=== PATIENT | male | born 1960 | race African-American/Black ===

== ENCOUNTER 2017-10-01 16:34 | Emergency (ER) | payer MEDICAID, OTHER ==
[~2017-10-01] VITALS: Ht 182.9 cm; Wt 77.1 kg
[2017-10-01 17:32] LABS: Hemoglobin 9.7 g/dL (13.5-17.5); Monocytes # (auto) 1.2 uL
[2017-10-01 17:34] LABS: Basophils # (auto) 0.2 uL; Basophils % (auto) 1.3 % (0.0-2.0); Eosinophils # (auto) 0.6 uL; Eosinophils % (auto) 4.3 % (0.0-7.0); Lymphocytes # (auto) 3.5 uL; Lymphocytes % (auto) 24.3 % (10.0-50.0); Mean Corpuscular Hemoglobin 23.9 pg (28.0-32.0); Mean Corpuscular Hgb Conc. 30.3 g/dL (32.0-36.0); Mean Corpuscular Volume 78.9 fL (80.0-100.0); Mean Platelet Volume 8.4 fL (6.9-10.8); Monocytes % (auto) 8.6 % (0.0-12.0); Neutrophils # (auto) 8.8 uL; Neutrophils % (auto) 61.5 % (37.0-80.0); Platelet Count (auto) 362 10^3/uL (140-450); Red Cell Distribution Width 16.3 % (11.8-14.3); White Blood Cell 14.3 10^3/uL (4.4-10.8)
[2017-10-01 17:45] LABS: Alkaline Phosphatase 97 U/L (45-117); Anion Gap 9 (5-15); Aspartate Aminotransferase 9 U/L (15-37); BUN/Creatinine Ratio 12.4; Bilirubin, Total 0.2 mg/dL (0.2-1.0); Blood Urea Nitrogen 43 mg/dL (7-18); Calcium 9.6 mg/dL (8.5-10.1); Carbon Dioxide 23 mmol/L (21-32); Chloride 112 mmol/L (98-107); GFR African American 24 mL/min; GFR Non-African American 20 mL/min; Glucose 122 mg/dL (74-106); Magnesium 1.9 mg/dL (1.6-2.6); Sodium 144 mmol/L (136-145); Total Protein 8.6 g/dL (6.4-8.2)
[2017-10-01 18:30] LABS: Hypochromia Moderate; Microcytosis Slight; Platelet Estimate Adequate
[2017-10-01] MEDS ORDERED: LEVOFLOXACIN 250 MG TAB PO ONE (23:00)
[2017-10-02] MEDS ORDERED: FUROSEMIDE 40 MG TAB PO ONE (00:15)
[2017-10-02 02:11] VITALS: BP 176/94
== END 2017-10-02 00:54 | disposition home or self-care (01) ==
LOC: ER 16:34
DX: I11.0 Hypertensive heart disease with heart failure (principal); I50.9 Heart failure, unspecified; J40 Bronchitis, not specified as acute or chronic; L02.212 Cutaneous abscess of back [any part, except buttock and flank]; E11.9 Type 2 diabetes mellitus without complications; F17.210 Nicotine dependence, cigarettes, uncomplicated
CPT/HCPCS: 36415; 71010; 80053; 83735; 84484; 85025; 93005

== ENCOUNTER 2018-01-24 11:28 | Inpatient (IN) | payer MEDICAID ==
[2018-01-24] VITALS (16 sets, daily range): BP systolic 90–139; BP diastolic 58–81
[~2018-01-24] VITALS: Ht 182.9 cm; Wt 103.0 kg
[2018-01-24 12:51] LABS: Basophils # (auto) 0.1 uL; Basophils % (auto) 0.3 % (0.0-2.0); Eosinophils # (auto) 0 uL; Eosinophils % (auto) 0.1 % (0.0-7.0); Hematocrit 13.3 % (41.0-53.0); Lymphocytes # (auto) 2.1 uL; Lymphocytes % (auto) 10.7 % (10.0-50.0); Mean Corpuscular Hemoglobin 24.8 pg (28.0-32.0); Mean Corpuscular Hgb Conc. 30.7 g/dL (32.0-36.0); Mean Corpuscular Volume 80.9 fL (80.0-100.0); Monocytes # (auto) 0.9 uL; Monocytes % (auto) 4.5 % (0.0-12.0); Neutrophils # (auto) 16.2 uL; Neutrophils % (auto) 84.4 % (37.0-80.0); Nucleated Red Blood Cells % 0.1 %; Platelet Count (auto) 429 10^3/uL (140-450); Red Blood Cells 1.64 10^6/uL (4.5-5.90); Red Cell Distribution Width 17.4 % (11.8-14.3); White Blood Cell 19.2 10^3/uL (4.4-10.8)
[2018-01-24 13:01] LABS: INR 0.99 (0.9-1.15); Partial Thromboplastin Time 24.4 sec (22.64-33.71); Prothrombin Time 10.8 sec (9.37-12.3)
[2018-01-24 13:23] LABS: Alanine Aminotransferase 51 U/L (16-61); Albumin 2.9 g/dL (3.4-5.0); Alkaline Phosphatase 83 U/L (45-117); Anion Gap 16 (5-15); Aspartate Aminotransferase 15 U/L (15-37); Bilirubin, Total 0.4 mg/dL (0.2-1.0); Blood Alcohol < 3.0 mg/dL (0-5); Calcium 9.4 mg/dL (8.5-10.1); Carbon Dioxide 26 mmol/L (21-32); Chloride 100 mmol/L (98-107); GFR African American 11 mL/min; GFR Non-African American 9 mL/min; Glucose 188 mg/dL (74-106); Magnesium 2.7 mg/dL (1.6-2.6); Potassium 4.7 mmol/L (3.5-5.1); Sodium 142 mmol/L (136-145)
[2018-01-24 13:36] LABS: Hemoglobin 4.1 g/dL (13.5-17.5)
[2018-01-24] MEDS ORDERED: NITROGLYCERIN 0.4 MG SL TAB SL PRN (14:30)
[2018-01-24] MEDS ORDERED: DEXTROSE (50%) 50ML SYRG IV PRN (14:30)
[2018-01-24] MEDS ORDERED: PROMETHAZINE HCL 25 MG/ML 1ML IV PRN (14:30)
[2018-01-24] MEDS ORDERED: PANTOPRAZOLE 40 MG/10 ML VIAL IV ONE (14:30)
[2018-01-24] MEDS ORDERED: PIPERACILLIN-TAZOB 2.25GM 50 ML IV ONE (14:30)
[2018-01-24] MEDS ORDERED: MORPHINE SULFATE 4 MG/ML SYR/VIAL IV PRN ×3 (14:30)
[2018-01-24] MEDS: SODIUM CHLORIDE 0.9% 1,000 ML IV SCH (14:36)
[2018-01-24] MEDS ORDERED: PIPERACILLIN-TAZOB 0.75 GM in D5W 5% 50 ML IV PRN (14:45)
[2018-01-24 14:54] LABS: BUN/Creatinine Ratio 23.7
[2018-01-24 15:00] LABS: Blood Urea Nitrogen 159 mg/dL (7-18)
[2018-01-24 15:02] LABS: CRP High Sensitivity 3.43 mg/dL (< 0.3)
[2018-01-24] MEDS: LORazepam 2MG/ML-1ML VIAL IV PRN (15:15)
[2018-01-24] MEDS: NOREPINEPHRINE 8 MG/250ML KIT 250 ML IV SCH (16:37)
[2018-01-24] MEDS ORDERED: EPOETIN ALFA 10,000 UNIT/1 ML VIAL IV ONE (17:45)
[2018-01-24] MEDS: ACCU-CHEK COMFORT CURVE STRIP VI SCH (18:05)
[2018-01-24] MEDS: InsuLIN REG 1unit/0.01ml Soln (100units/ml) SC SCH (18:11)
[2018-01-24] MEDS: LINEZOLID 600MG/300ML 300 ML IV SCH (19:05)
[2018-01-24 20:09] LABS: Hemoglobin 7.9 g/dL (13.5-17.5)
[2018-01-24 20:10] LABS: Hematocrit 24.4 % (41.0-53.0)
[2018-01-24 20:14] LABS: Urine WBC None Seen /hpf (0 - 3)
[2018-01-24 20:29] LABS: Urine Bacteria FEW /hpf (None Seen); Urine Blood Negative /uL (Negative); Urine Specific Gravity 1.013 (1.001-1.035)
[2018-01-24 20:29] LABS: Carcinoembryonic Antigen 0.75 ng/mL (<5.0 OR =)
[2018-01-24] MEDS: metroNIDAZOLE 500MG/100ML 100 ML IV SCH (21:00)
[2018-01-24] MEDS: PANTOPRAZOLE 40 MG/10 ML VIAL IV SCH (22:14)
[2018-01-24] MEDS: PIPERACILLIN-TAZOB 2.25GM 50 ML IV SCH (22:14)
[2018-01-25] VITALS (79 sets, daily range): BP systolic 95–151; BP diastolic 45–97
[2018-01-25] MEDS: ACCU-CHEK COMFORT CURVE STRIP VI SCH ×4 (00:26→17:45)
[2018-01-25] MEDS: SODIUM CHLORIDE 0.9% 1,000 ML IV SCH ×3 (00:27→20:17)
[2018-01-25] MEDS: metroNIDAZOLE 500MG/100ML 100 ML IV SCH ×4 (00:27→17:46)
[2018-01-25] MEDS: LINEZOLID 600MG/300ML 300 ML IV SCH ×2 (01:30→14:51)
[2018-01-25 04:06] LABS: Hematocrit 21.2 % (41.0-53.0)
[2018-01-25 04:26] LABS: Cholesterol 109 mg/dL (< 200); HDL Cholesterol 25 mg/dL (40-59); LDL Cholesterol 63 mg/dL (< 100); Triglycerides 207 mg/dL (< 150)
[2018-01-25 04:33] LABS: Albumin 2.7 g/dL (3.4-5.0); BUN/Creatinine Ratio 22.4; Bilirubin, Total 0.8 mg/dL (0.2-1.0); Calcium 8.5 mg/dL (8.5-10.1); Total Protein 7.2 g/dL (6.4-8.2)
[2018-01-25] MEDS: InsuLIN REG 1unit/0.01ml Soln (100units/ml) SC SCH ×4 (06:10→17:45)
[2018-01-25 08:02] LABS: Hematocrit 21.4 % (41.0-53.0)
[2018-01-25 08:08] LABS: Hemoglobin 6.9 g/dL (13.5-17.5)
[2018-01-25] MEDS ORDERED: EPOETIN ALFA 10,000 UNIT/1 ML VIAL IV ONE (09:00)
[2018-01-25] MEDS ORDERED: SODIUM CHL 0.9% 1000 ML BAG XX ONE (09:00)
[2018-01-25] MEDS ORDERED: PANTOPRAZOLE 40 MG/10 ML VIAL IV SCH (10:00)
[2018-01-25] MEDS: PANTOPRAZOLE 40 MG/10 ML VIAL IV SCH ×2 (12:26→22:00)
[2018-01-25] MEDS: PIPERACILLIN-TAZOB 2.25GM 50 ML IV SCH ×2 (12:26→22:00)
[2018-01-25] MEDS ORDERED: NIFE60TA59 PO (13:09)
[2018-01-25] MEDS ORDERED: IBUP800T24 PO (13:09)
[2018-01-25] MEDS ORDERED: SPIR25TA89 PO (13:09)
[2018-01-25] MEDS ORDERED: ASPI81CH43 PO (13:09)
[2018-01-25] MEDS ORDERED: HYDR25TA4 PO (13:09)
[2018-01-25] MEDS ORDERED: HYDR50TA15 PO (13:09)
[2018-01-25] MEDS ORDERED: CLON0.2D6 PO (13:09)
[2018-01-25] MEDS ORDERED: CARV25TA55 PO (13:09)
[2018-01-25] MEDS ORDERED: GABA300C10 PO (13:09)
[2018-01-25] MEDS ORDERED: METF-370 PO (13:09)
[2018-01-25] MEDS ORDERED: CLOP75TA41 PO (13:09)
[2018-01-25] MEDS ORDERED: LABE100T PO (13:09)
[2018-01-25] MEDS ORDERED: POTA20TA53 PO (13:17)
[2018-01-25] MEDS ORDERED: COLLPOW10 TOP (13:17)
[2018-01-25 13:30] LABS: Hematocrit 30.4 % (41.0-53.0)
[2018-01-25] MEDS: NOREPINEPHRINE 8 MG/250ML KIT 250 ML IV SCH (14:53)
[2018-01-25] MEDS ORDERED: GOLYTELY 4L KIT PO ONE (18:00)
[2018-01-25 18:57] LABS: Hematocrit 31.5 % (41.0-53.0); Hemoglobin 10.4 g/dL (13.5-17.5)
[2018-01-25] MEDS: FLUCONAZOLE 200MG/100ML 100 ML IV SCH (19:11)
[2018-01-26] VITALS (43 sets, daily range): BP systolic 120–161; BP diastolic 78–102
[2018-01-26] MEDS: metroNIDAZOLE 500MG/100ML 100 ML IV SCH ×5 (00:15→23:47)
[2018-01-26] MEDS: InsuLIN REG 1unit/0.01ml Soln (100units/ml) SC SCH ×4 (00:20→18:00)
[2018-01-26] MEDS: ACCU-CHEK COMFORT CURVE STRIP VI SCH ×4 (00:20→17:47)
[2018-01-26] MEDS: LINEZOLID 600MG/300ML 300 ML IV SCH ×2 (01:30→15:37)
[2018-01-26] MEDS: LORazepam 2MG/ML-1ML VIAL IV PRN (02:05)
[2018-01-26 02:11] LABS: Hematocrit 33.9 % (41.0-53.0); Hemoglobin 10.5 g/dL (13.5-17.5)
[2018-01-26 03:45] LABS: Basophils # (auto) 0.1 uL; Basophils % (auto) 0.9 % (0.0-2.0); Eosinophils # (auto) 0.1 uL; Eosinophils % (auto) 0.8 % (0.0-7.0); Hemoglobin 9.9 g/dL (13.5-17.5); Lymphocytes # (auto) 2.4 uL; Lymphocytes % (auto) 14.8 % (10.0-50.0); Mean Corpuscular Hemoglobin 28.1 pg (28.0-32.0); Mean Corpuscular Hgb Conc. 33.1 g/dL (32.0-36.0); Monocytes # (auto) 1.6 uL; Monocytes % (auto) 10.1 % (0.0-12.0); Neutrophils # (auto) 11.7 uL; Neutrophils % (auto) 73.4 % (37.0-80.0); Nucleated Red Blood Cells % 0.7 %; Platelet Count (auto) 180 10^3/uL (140-450); Red Blood Cells 3.53 10^6/uL (4.5-5.90); Red Cell Distribution Width 15.3 % (11.8-14.3)
[2018-01-26 04:00] LABS: BUN/Creatinine Ratio 14.9; Calcium 8.3 mg/dL (8.5-10.1); Potassium 3.5 mmol/L (3.5-5.1)
[2018-01-26] MEDS: SODIUM CHLORIDE 0.9% 1,000 ML IV SCH ×2 (06:18→16:25)
[2018-01-26] MEDS: FLUCONAZOLE 200MG/100ML 100 ML IV SCH (08:16)
[2018-01-26] MEDS: PANTOPRAZOLE 40 MG/10 ML VIAL IV SCH ×2 (09:46→22:00)
[2018-01-26] MEDS: PIPERACILLIN-TAZOB 2.25GM 50 ML IV SCH ×2 (09:46→22:00)
[2018-01-26] MEDS ORDERED: NALOXONE HCL 0.4 MG/ML VIAL ONE (12:39)
[2018-01-26] MEDS ORDERED: diphenhdrAMINE HCL 50 MG/1 ML VL ONE (12:39)
[2018-01-26] MEDS ORDERED: BENZOCAINE (DENTAL) 20 % SPRAY 60ML MT ONE (12:39)
[2018-01-26] MEDS ORDERED: MIDAZOLAM HCL 5 MG/ML-1ML VIAL ONE (12:39)
[2018-01-26] MEDS ORDERED: FLUMAZENIL 0.1 MG/ML INJ 10ML MDV IV ONE (12:39)
[2018-01-26] MEDS ORDERED: SODIUM CHLORIDE LOCK 10 ML ONE (12:39)
[2018-01-26] MEDS ORDERED: EPINEPHrine HCL 1 MG/10 ML SYRG ONE (12:39)
[2018-01-26] MEDS ORDERED: fentaNYL CITRATE 100 MCG/2 ML VL ONE (12:40)
[2018-01-26] MEDS: NOREPINEPHRINE 8 MG/250ML KIT 250 ML IV SCH (15:37)
[2018-01-27] VITALS (9 sets, daily range): BP systolic 135–166; BP diastolic 86–105
[2018-01-27] MEDS: LINEZOLID 600MG/300ML 300 ML IV SCH (01:06)
[2018-01-27] MEDS: SODIUM CHLORIDE 0.9% 1,000 ML IV SCH (02:17)
[2018-01-27] MEDS: ACCU-CHEK COMFORT CURVE STRIP VI SCH ×4 (03:03→17:44)
[2018-01-27] MEDS: metroNIDAZOLE 500MG/100ML 100 ML IV SCH (05:21)
[2018-01-27] MEDS: InsuLIN REG 1unit/0.01ml Soln (100units/ml) SC SCH ×4 (05:50→17:44)
[2018-01-27 06:34] LABS: Basophils # (auto) 0.2 uL; Eosinophils # (auto) 0.2 uL; Eosinophils % (auto) 1.3 % (0.0-7.0); Hematocrit 33.1 % (41.0-53.0); Hemoglobin 10.8 g/dL (13.5-17.5); Lymphocytes # (auto) 1.9 uL; Mean Corpuscular Hemoglobin 28.5 pg (28.0-32.0); Mean Corpuscular Hgb Conc. 32.5 g/dL (32.0-36.0); Mean Corpuscular Volume 87.6 fL (80.0-100.0); Monocytes % (auto) 6.3 % (0.0-12.0); Neutrophils # (auto) 12.5 uL; Neutrophils % (auto) 79.4 % (37.0-80.0); Nucleated Red Blood Cells % 0.1 %; Platelet Count (auto) 226 10^3/uL (140-450); Red Blood Cells 3.78 10^6/uL (4.5-5.90); Red Cell Distribution Width 15.9 % (11.8-14.3); White Blood Cell 15.8 10^3/uL (4.4-10.8)
[2018-01-27 06:52] LABS: BUN/Creatinine Ratio 11.9; Calcium 8.4 mg/dL (8.5-10.1); Phosphorus 5.1 mg/dL (2.5-4.90); Potassium 3.7 mmol/L (3.5-5.1)
[2018-01-27] MEDS ORDERED: SODIUM CHL 0.9% 1000 ML BAG XX ONE (08:15)
[2018-01-27] MEDS ORDERED: EPOETIN ALFA 10,000 UNIT/1 ML VIAL IV ONE (08:15)
[2018-01-27] MEDS: FLUCONAZOLE 200MG/100ML 100 ML IV SCH (08:49)
[2018-01-27 09:32] LABS: Folate (Folic Acid) 5.53 ng/mL (5.38-24)
[2018-01-27] MEDS: PIPERACILLIN-TAZOB 2.25GM 50 ML IV SCH ×2 (10:03→21:10)
[2018-01-27] MEDS: PANTOPRAZOLE 40 MG/10 ML VIAL IV SCH ×2 (10:03→21:09)
[2018-01-27] MEDS: NOREPINEPHRINE 8 MG/250ML KIT 250 ML IV SCH (16:00)
[2018-01-28] MEDS ORDERED: hydrALAZINE HCL 20 MG/ML VL IV PRN (04:15)
[2018-01-28 04:20] VITALS: BP 172/105
[2018-01-28 04:48] VITALS: BP 164/92
[2018-01-28 05:17] LABS: Basophils # (auto) 0.1 uL; Basophils % (auto) 0.8 % (0.0-2.0); Eosinophils # (auto) 0.2 uL; Eosinophils % (auto) 1.5 % (0.0-7.0); Hematocrit 32.6 % (41.0-53.0); Hemoglobin 10.5 g/dL (13.5-17.5); Lymphocytes # (auto) 1.9 uL; Lymphocytes % (auto) 13.1 % (10.0-50.0); Mean Corpuscular Hemoglobin 28.2 pg (28.0-32.0); Mean Corpuscular Hgb Conc. 32.1 g/dL (32.0-36.0); Monocytes % (auto) 6.5 % (0.0-12.0); Neutrophils # (auto) 11.6 uL; Neutrophils % (auto) 78.1 % (37.0-80.0); Nucleated Red Blood Cells % 0.1 %; Platelet Count (auto) 266 10^3/uL (140-450); Red Blood Cells 3.71 10^6/uL (4.5-5.90); Red Cell Distribution Width 16.2 % (11.8-14.3); White Blood Cell 14.9 10^3/uL (4.4-10.8)
[2018-01-28] MEDS: InsuLIN REG 1unit/0.01ml Soln (100units/ml) SC SCH ×5 (05:25→23:30)
[2018-01-28] MEDS: ACCU-CHEK COMFORT CURVE STRIP VI SCH ×5 (05:25→23:30)
[2018-01-28 05:33] LABS: BUN/Creatinine Ratio 10.3; Calcium 8.4 mg/dL (8.5-10.1); Magnesium 1.7 mg/dL (1.6-2.6); Potassium 3.5 mmol/L (3.5-5.1)
[2018-01-28 08:00] VITALS: BP 109/39
[2018-01-28] MEDS: PANTOPRAZOLE 40 MG/10 ML VIAL IV SCH ×2 (10:41→21:49)
[2018-01-28 12:00] VITALS: BP 125/84
[2018-01-28 16:00] VITALS: BP 136/87
[2018-01-28] MEDS: NOREPINEPHRINE 8 MG/250ML KIT 250 ML IV SCH (16:00)
[2018-01-28 20:00] VITALS: BP 122/74
[2018-01-29] VITALS: BP 142/80
[2018-01-29 04:00] VITALS: BP 159/98
[2018-01-29 05:11] LABS: Basophils # (auto) 0.1 uL; Basophils % (auto) 1.2 % (0.0-2.0); Eosinophils # (auto) 0.2 uL; Eosinophils % (auto) 1.9 % (0.0-7.0); Hematocrit 36.3 % (41.0-53.0); Hemoglobin 11.6 g/dL (13.5-17.5); Lymphocytes # (auto) 2.8 uL; Lymphocytes % (auto) 25.7 % (10.0-50.0); Mean Corpuscular Hemoglobin 28.4 pg (28.0-32.0); Mean Corpuscular Hgb Conc. 32.1 g/dL (32.0-36.0); Mean Corpuscular Volume 88.6 fL (80.0-100.0); Monocytes % (auto) 8.9 % (0.0-12.0); Neutrophils # (auto) 6.9 uL; Neutrophils % (auto) 62.3 % (37.0-80.0); Platelet Count (auto) 233 10^3/uL (140-450); Red Blood Cells 4.09 10^6/uL (4.5-5.90); Red Cell Distribution Width 16.5 % (11.8-14.3)
[2018-01-29 05:28] LABS: Calcium 8.5 mg/dL (8.5-10.1); Potassium 3.6 mmol/L (3.5-5.1)
[2018-01-29 05:32] LABS: Albumin 2.9 g/dL (3.4-5.0)
[2018-01-29 05:45] LABS: Bilirubin, Total 0.9 mg/dL (0.2-1.0); Total Protein 8.1 g/dL (6.4-8.2)
[2018-01-29] MEDS: InsuLIN REG 1unit/0.01ml Soln (100units/ml) SC SCH ×2 (06:00→10:57)
[2018-01-29] MEDS: ACCU-CHEK COMFORT CURVE STRIP VI SCH ×2 (06:04→10:57)
[2018-01-29 08:00] VITALS: BP 138/80
[2018-01-29] MEDS: PANTOPRAZOLE 40 MG/10 ML VIAL IV SCH ×2 (09:23→22:30)
[2018-01-29] MEDS ORDERED: SODIUM CHL 0.9% 1000 ML BAG XX ONE (11:15)
[2018-01-29 13:00] VITALS: BP 104/70
[2018-01-29 17:00] VITALS: BP 143/93
[2018-01-29] MEDS: Novasource Renal 8 Ounces PO SCH (17:59)
[2018-01-29] MEDS: PRO-STAT 64 30ML PO SCH (18:00)
[2018-01-29 22:00] VITALS: BP 132/67
[2018-01-29] MEDS: ASCORBIC ACID 500 MG TAB PO SCH (22:30)
[2018-01-30 06:18] VITALS: BP 144/91
[2018-01-30 08:52] VITALS: BP 141/73
[2018-01-30] MEDS: B-COMPLEX W/ C & FOLIC ACID(NEPHROVITE TAB) PO SCH (09:33)
[2018-01-30] MEDS: Novasource Renal 8 Ounces PO SCH ×2 (09:33→18:29)
[2018-01-30] MEDS: PRO-STAT 64 30ML PO SCH ×2 (09:33→18:29)
[2018-01-30] MEDS: PANTOPRAZOLE 40 MG/10 ML VIAL IV SCH (09:33)
[2018-01-30] MEDS: ASCORBIC ACID 500 MG TAB PO SCH ×2 (09:34→23:39)
[2018-01-30 13:00] VITALS: BP 123/73
[2018-01-30 17:00] VITALS: BP 107/72
[2018-01-30] MEDS: SUCRALFATE 1 GM/10 ML ORAL SUSP PO SCH (18:29)
[2018-01-30 22:29] VITALS: BP 123/70
[2018-01-30] MEDS: CARVEDILOL 3.125 MG TAB PO SCH (23:38)
[2018-01-30] MEDS: ATORVASTATIN 20 MG TAB PO SCH (23:38)
[2018-01-30] MEDS: PANTOPRAZOLE 40 MG TAB PO SCH (23:39)
[2018-01-31 05:03] VITALS: BP 145/87
[2018-01-31] MEDS: SUCRALFATE 1 GM/10 ML ORAL SUSP PO SCH ×2 (07:28→17:00)
[2018-01-31] MEDS ORDERED: SODIUM CHL 0.9% 1000 ML BAG XX ONE (08:30)
[2018-01-31] MEDS ORDERED: EPOETIN ALFA 10,000 UNIT/1 ML VIAL IV ONE (08:30)
[2018-01-31 09:00] VITALS: BP 90/62
[2018-01-31] MEDS: PRO-STAT 64 30ML PO SCH ×2 (09:10→18:18)
[2018-01-31] MEDS: Novasource Renal 8 Ounces PO SCH ×2 (09:10→18:18)
[2018-01-31] MEDS: PANTOPRAZOLE 40 MG TAB PO SCH ×2 (10:00→22:02)
[2018-01-31] MEDS: ASPirin-EC 81 mg tab PO SCH (10:00)
[2018-01-31] MEDS: B-COMPLEX W/ C & FOLIC ACID(NEPHROVITE TAB) PO SCH (10:00)
[2018-01-31] MEDS: ASCORBIC ACID 500 MG TAB PO SCH ×2 (10:00→22:02)
[2018-01-31] MEDS: CARVEDILOL 3.125 MG TAB PO SCH ×2 (10:00→22:02)
[2018-01-31 17:15] VITALS: BP 129/89
[2018-01-31 19:13] VITALS: BP 136/87
[2018-01-31 21:52] VITALS: BP 143/90
[2018-01-31] MEDS: ATORVASTATIN 20 MG TAB PO SCH (22:02)
[2018-01-31 22:13] VITALS: BP 143/90
[2018-02-01 05:13] VITALS: BP 140/92
[2018-02-01] MEDS: SUCRALFATE 1 GM/10 ML ORAL SUSP PO SCH ×2 (05:54→17:12)
[2018-02-01 09:23] VITALS: BP 98/68
[2018-02-01] MEDS: CARVEDILOL 3.125 MG TAB PO SCH ×2 (10:00→21:37)
[2018-02-01] MEDS: Novasource Renal 8 Ounces PO SCH ×2 (12:03→17:12)
[2018-02-01] MEDS: B-COMPLEX W/ C & FOLIC ACID(NEPHROVITE TAB) PO SCH (12:04)
[2018-02-01] MEDS: PANTOPRAZOLE 40 MG TAB PO SCH ×2 (12:04→21:37)
[2018-02-01] MEDS: ASPirin-EC 81 mg tab PO SCH (12:04)
[2018-02-01] MEDS: PRO-STAT 64 30ML PO SCH ×2 (12:04→17:13)
[2018-02-01] MEDS: ASCORBIC ACID 500 MG TAB PO SCH ×2 (12:05→21:37)
[2018-02-01 13:17] VITALS: BP 110/72
[2018-02-01 17:12] VITALS: BP 134/84
[2018-02-01 21:33] VITALS: BP 129/82
[2018-02-01] MEDS: ATORVASTATIN 20 MG TAB PO SCH (21:36)
[2018-02-02 05:00] VITALS: BP 136/86
[2018-02-02] MEDS: SUCRALFATE 1 GM/10 ML ORAL SUSP PO SCH ×2 (05:51→16:23)
[2018-02-02 07:52] LABS: Basophils # (auto) 0.1 uL; Basophils % (auto) 0.7 % (0.0-2.0); Eosinophils # (auto) 0.2 uL; Eosinophils % (auto) 1.6 % (0.0-7.0); Hematocrit 36.8 % (41.0-53.0); Lymphocytes # (auto) 2.9 uL; Lymphocytes % (auto) 26.7 % (10.0-50.0); Mean Corpuscular Hemoglobin 28.1 pg (28.0-32.0); Mean Corpuscular Hgb Conc. 32.6 g/dL (32.0-36.0); Mean Corpuscular Volume 86.3 fL (80.0-100.0); Monocytes % (auto) 9.3 % (0.0-12.0); Neutrophils # (auto) 6.7 uL; Neutrophils % (auto) 61.7 % (37.0-80.0); Platelet Count (auto) 207 10^3/uL (140-450); Red Blood Cells 4.27 10^6/uL (4.5-5.90); Red Cell Distribution Width 15.8 % (11.8-14.3); White Blood Cell 10.8 10^3/uL (4.4-10.8)
[2018-02-02 08:41] VITALS: BP 121/73
[2018-02-02 08:48] LABS: BUN/Creatinine Ratio 7.8; Calcium 8.9 mg/dL (8.5-10.1)
[2018-02-02 08:53] LABS: Potassium 2.9 mmol/L (3.5-5.1)
[2018-02-02] MEDS: ASCORBIC ACID 500 MG TAB PO SCH ×2 (10:21→22:23)
[2018-02-02] MEDS: CARVEDILOL 3.125 MG TAB PO SCH ×2 (10:21→22:24)
[2018-02-02] MEDS: ASPirin-EC 81 mg tab PO SCH (10:21)
[2018-02-02] MEDS: B-COMPLEX W/ C & FOLIC ACID(NEPHROVITE TAB) PO SCH (10:21)
[2018-02-02] MEDS: PANTOPRAZOLE 40 MG TAB PO SCH ×2 (10:21→22:23)
[2018-02-02] MEDS: PRO-STAT 64 30ML PO SCH ×2 (10:26→17:54)
[2018-02-02] MEDS: Novasource Renal 8 Ounces PO SCH ×2 (10:26→17:54)
[2018-02-02] MEDS ORDERED: POTASSIUM CHL 20 Meq TABLET PO ONE (12:30)
[2018-02-02 12:57] VITALS: BP 132/78
[2018-02-02 16:40] VITALS: BP 146/94
[2018-02-02 22:06] VITALS: BP 130/83
[2018-02-02] MEDS: ATORVASTATIN 20 MG TAB PO SCH (22:23)
[2018-02-03 05:53] VITALS: BP 124/88
[2018-02-03] MEDS: SUCRALFATE 1 GM/10 ML ORAL SUSP PO SCH ×2 (07:01→18:44)
[2018-02-03 08:26] LABS: Basophils # (auto) 0.1 uL; Basophils % (auto) 0.9 % (0.0-2.0); Eosinophils # (auto) 0.2 uL; Eosinophils % (auto) 1.4 % (0.0-7.0); Hematocrit 33.5 % (41.0-53.0); Hemoglobin 10.4 g/dL (13.5-17.5); Lymphocytes # (auto) 3.4 uL; Lymphocytes % (auto) 25.2 % (10.0-50.0); Mean Corpuscular Hemoglobin 27.3 pg (28.0-32.0); Mean Corpuscular Hgb Conc. 31.2 g/dL (32.0-36.0); Mean Corpuscular Volume 87.8 fL (80.0-100.0); Monocytes # (auto) 1.5 uL; Monocytes % (auto) 11.3 % (0.0-12.0); Neutrophils # (auto) 8.2 uL; Neutrophils % (auto) 61.2 % (37.0-80.0); Nucleated Red Blood Cells % 0.1 %; Platelet Count (auto) 253 10^3/uL (140-450); Red Blood Cells 3.81 10^6/uL (4.5-5.90); Red Cell Distribution Width 15.7 % (11.8-14.3); White Blood Cell 13.4 10^3/uL (4.4-10.8)
[2018-02-03 08:48] LABS: BUN/Creatinine Ratio 9.2
[2018-02-03 08:51] LABS: Potassium 2.9 mmol/L (3.5-5.1)
[2018-02-03 09:00] VITALS: BP 113/76
[2018-02-03] MEDS: PRO-STAT 64 30ML PO SCH ×2 (09:31→18:45)
[2018-02-03] MEDS: Novasource Renal 8 Ounces PO SCH ×2 (09:31→18:44)
[2018-02-03] MEDS: B-COMPLEX W/ C & FOLIC ACID(NEPHROVITE TAB) PO SCH (10:00)
[2018-02-03] MEDS: PANTOPRAZOLE 40 MG TAB PO SCH ×2 (10:00→21:25)
[2018-02-03] MEDS: ASCORBIC ACID 500 MG TAB PO SCH ×2 (10:00→21:26)
[2018-02-03] MEDS: ASPirin-EC 81 mg tab PO SCH (10:00)
[2018-02-03] MEDS: CARVEDILOL 3.125 MG TAB PO SCH ×2 (10:00→21:26)
[2018-02-03 13:00] VITALS: BP 131/88
[2018-02-03 17:00] VITALS: BP 119/82
[2018-02-03] MEDS ORDERED: POTASSIUM CHLORIDE 60 MEQ, LIDOCAINE 1% (LOCAL ANESTH.) 6 ML in SODIUM CHL 0.9% 500 ML IV ONE (18:15)
[2018-02-03 22:00] VITALS: BP 143/81
[2018-02-03] MEDS: ATORVASTATIN 20 MG TAB PO SCH (22:52)
[2018-02-03 23:00] VITALS: BP 149/96
[2018-02-04 05:51] VITALS: BP 109/65
[2018-02-04] MEDS: SUCRALFATE 1 GM/10 ML ORAL SUSP PO SCH ×2 (06:51→18:29)
[2018-02-04] MEDS: ASCORBIC ACID 500 MG TAB PO SCH ×2 (10:00→20:46)
[2018-02-04] MEDS: CARVEDILOL 3.125 MG TAB PO SCH ×2 (10:00→20:47)
[2018-02-04] MEDS: ASPirin-EC 81 mg tab PO SCH (10:00)
[2018-02-04] MEDS: PANTOPRAZOLE 40 MG TAB PO SCH ×2 (10:00→20:46)
[2018-02-04] MEDS: B-COMPLEX W/ C & FOLIC ACID(NEPHROVITE TAB) PO SCH (10:00)
[2018-02-04 13:00] VITALS: BP 122/76
[2018-02-04] MEDS: PRO-STAT 64 30ML PO SCH ×2 (15:57→18:20)
[2018-02-04] MEDS: Novasource Renal 8 Ounces PO SCH ×2 (15:57→18:20)
[2018-02-04 17:00] VITALS: BP 130/80
[2018-02-04] MEDS: ATORVASTATIN 20 MG TAB PO SCH (20:45)
[2018-02-04 22:02] VITALS: BP 115/65
[2018-02-05 05:17] VITALS: BP 145/89
[2018-02-05 06:05] LABS: Basophils # (auto) 0.1 uL; Basophils % (auto) 1.2 % (0.0-2.0); Eosinophils # (auto) 0.1 uL; Eosinophils % (auto) 1.3 % (0.0-7.0); Hematocrit 34.8 % (41.0-53.0); Hemoglobin 11.4 g/dL (13.5-17.5); Lymphocytes % (auto) 28.1 % (10.0-50.0); Mean Corpuscular Hemoglobin 28.3 pg (28.0-32.0); Mean Corpuscular Hgb Conc. 32.8 g/dL (32.0-36.0); Mean Corpuscular Volume 86.1 fL (80.0-100.0); Monocytes % (auto) 9.3 % (0.0-12.0); Neutrophils # (auto) 6.3 uL; Neutrophils % (auto) 60.1 % (37.0-80.0); Nucleated Red Blood Cells % 0.1 %; Platelet Count (auto) 300 10^3/uL (140-450); Red Blood Cells 4.04 10^6/uL (4.5-5.90); Red Cell Distribution Width 15.8 % (11.8-14.3); White Blood Cell 10.5 10^3/uL (4.4-10.8)
[2018-02-05 06:19] LABS: BUN/Creatinine Ratio 8.6; Calcium 9.2 mg/dL (8.5-10.1); Potassium 3.8 mmol/L (3.5-5.1)
[2018-02-05] MEDS: SUCRALFATE 1 GM/10 ML ORAL SUSP PO SCH ×2 (07:00→22:36)
[2018-02-05 07:21] VITALS: BP 114/71
[2018-02-05] MEDS: Novasource Renal 8 Ounces PO SCH ×2 (08:25→22:39)
[2018-02-05] MEDS: PRO-STAT 64 30ML PO SCH ×2 (08:26→22:40)
[2018-02-05] MEDS: PANTOPRAZOLE 40 MG TAB PO SCH ×2 (09:48→22:39)
[2018-02-05] MEDS: ASCORBIC ACID 500 MG TAB PO SCH ×2 (09:48→22:37)
[2018-02-05] MEDS: ASPirin-EC 81 mg tab PO SCH (09:48)
[2018-02-05] MEDS: CARVEDILOL 3.125 MG TAB PO SCH ×2 (09:48→22:37)
[2018-02-05] MEDS: B-COMPLEX W/ C & FOLIC ACID(NEPHROVITE TAB) PO SCH (09:49)
[2018-02-05 11:29] VITALS: BP 132/90
[2018-02-05 16:27] VITALS: BP 138/82
[2018-02-05 22:00] VITALS: BP 146/89
[2018-02-05] MEDS: ATORVASTATIN 20 MG TAB PO SCH (22:37)
[2018-02-06 05:00] VITALS: BP 144/83
[2018-02-06] MEDS: SUCRALFATE 1 GM/10 ML ORAL SUSP PO SCH ×2 (05:57→17:00)
[2018-02-06] MEDS: PRO-STAT 64 30ML PO SCH ×2 (08:00→18:00)
[2018-02-06] MEDS: Novasource Renal 8 Ounces PO SCH ×2 (08:00→18:00)
[2018-02-06 09:00] VITALS: BP 109/71
[2018-02-06] MEDS: PANTOPRAZOLE 40 MG TAB PO SCH ×2 (09:52→20:40)
[2018-02-06] MEDS: B-COMPLEX W/ C & FOLIC ACID(NEPHROVITE TAB) PO SCH (09:52)
[2018-02-06] MEDS: ASCORBIC ACID 500 MG TAB PO SCH ×2 (09:52→20:40)
[2018-02-06] MEDS: ASPirin-EC 81 mg tab PO SCH (09:52)
[2018-02-06] MEDS: CARVEDILOL 3.125 MG TAB PO SCH ×2 (09:53→20:41)
[2018-02-06 13:00] VITALS: BP 134/89
[2018-02-06] MEDS: ATORVASTATIN 20 MG TAB PO SCH (20:40)
[2018-02-06 22:00] VITALS: BP 150/90
[2018-02-07 05:00] VITALS: BP 156/96
[2018-02-07] MEDS: SUCRALFATE 1 GM/10 ML ORAL SUSP PO SCH ×2 (07:10→18:13)
[2018-02-07] MEDS: PRO-STAT 64 30ML PO SCH ×2 (08:00→18:13)
[2018-02-07] MEDS: Novasource Renal 8 Ounces PO SCH ×2 (08:00→18:13)
[2018-02-07 09:00] VITALS: BP 152/90
[2018-02-07] MEDS: ASPirin-EC 81 mg tab PO SCH (11:39)
[2018-02-07] MEDS: CARVEDILOL 3.125 MG TAB PO SCH ×2 (11:39→21:00)
[2018-02-07] MEDS: ASCORBIC ACID 500 MG TAB PO SCH ×2 (11:40→21:00)
[2018-02-07] MEDS: PANTOPRAZOLE 40 MG TAB PO SCH ×2 (11:40→21:00)
[2018-02-07] MEDS: B-COMPLEX W/ C & FOLIC ACID(NEPHROVITE TAB) PO SCH (11:40)
[2018-02-07 13:00] VITALS: BP 104/67
[2018-02-07 17:00] VITALS: BP 123/77
[2018-02-07] MEDS: ATORVASTATIN 20 MG TAB PO SCH (21:00)
[2018-02-07 21:36] VITALS: BP 128/82
[2018-02-08 05:00] VITALS: BP 125/80
[2018-02-08] MEDS: SUCRALFATE 1 GM/10 ML ORAL SUSP PO SCH ×2 (05:35→18:31)
[2018-02-08] MEDS: PRO-STAT 64 30ML PO SCH ×2 (08:00→18:32)
[2018-02-08] MEDS: Novasource Renal 8 Ounces PO SCH ×2 (08:00→18:32)
[2018-02-08 09:00] VITALS: BP 117/62
[2018-02-08] MEDS: B-COMPLEX W/ C & FOLIC ACID(NEPHROVITE TAB) PO SCH (09:58)
[2018-02-08] MEDS: ASCORBIC ACID 500 MG TAB PO SCH ×2 (09:58→21:49)
[2018-02-08] MEDS: CARVEDILOL 3.125 MG TAB PO SCH ×2 (09:58→21:49)
[2018-02-08] MEDS: PANTOPRAZOLE 40 MG TAB PO SCH ×2 (09:58→21:48)
[2018-02-08] MEDS: ASPirin-EC 81 mg tab PO SCH (09:58)
[2018-02-08 13:00] VITALS: BP 118/77
[2018-02-08 13:27] LABS: Albumin 2.5 g/dL (3.4-5.0); BUN/Creatinine Ratio 10.8; Calcium 9.2 mg/dL (8.5-10.1); Potassium 3.7 mmol/L (3.5-5.1)
[2018-02-08 13:30] LABS: Bilirubin, Total 0.4 mg/dL (0.2-1.0); Total Protein 7.7 g/dL (6.4-8.2)
[2018-02-08 17:00] VITALS: BP 111/76
[2018-02-08] MEDS: ATORVASTATIN 20 MG TAB PO SCH (21:49)
[2018-02-08 22:19] VITALS: BP 115/72
[2018-02-09 05:00] VITALS: BP 136/89
[2018-02-09 05:30] LABS: Albumin 2.6 g/dL (3.4-5.0); BUN/Creatinine Ratio 11.7; Bilirubin, Total 0.4 mg/dL (0.2-1.0); Calcium 8.8 mg/dL (8.5-10.1); Potassium 4.3 mmol/L (3.5-5.1)
[2018-02-09] MEDS: SUCRALFATE 1 GM/10 ML ORAL SUSP PO SCH ×2 (06:29→17:36)
[2018-02-09 08:08] VITALS: BP 112/72
[2018-02-09] MEDS: Novasource Renal 8 Ounces PO SCH ×2 (08:30→17:36)
[2018-02-09] MEDS: PRO-STAT 64 30ML PO SCH ×2 (08:30→17:36)
[2018-02-09] MEDS: ASCORBIC ACID 500 MG TAB PO SCH ×2 (09:53→22:17)
[2018-02-09] MEDS: PANTOPRAZOLE 40 MG TAB PO SCH ×2 (09:53→22:17)
[2018-02-09] MEDS: B-COMPLEX W/ C & FOLIC ACID(NEPHROVITE TAB) PO SCH (09:53)
[2018-02-09] MEDS: CARVEDILOL 3.125 MG TAB PO SCH ×2 (09:53→22:17)
[2018-02-09] MEDS: ASPirin-EC 81 mg tab PO SCH (09:54)
[2018-02-09] MEDS ORDERED: SODIUM CHL 0.9% 1000 ML BAG XX ONE (11:00)
[2018-02-09 11:52] LABS: Creatinine, Urine 117 mg/dL (30.0-125.0); Protein, Urine 300 mg/dL (0.0-11.9); Sodium Urine 28 mmol/L (40-220)
[2018-02-09 12:58] VITALS: BP 118/70
[2018-02-09 16:57] VITALS: BP 119/81
[2018-02-09] MEDS: ATORVASTATIN 20 MG TAB PO SCH (22:17)
[2018-02-09 22:35] VITALS: BP 111/79
[2018-02-10 05:14] VITALS: BP 126/77
[2018-02-10] MEDS: SUCRALFATE 1 GM/10 ML ORAL SUSP PO SCH ×2 (06:05→16:55)
[2018-02-10 06:38] LABS: Albumin 2.7 g/dL (3.4-5.0); BUN/Creatinine Ratio 12.6; Bilirubin, Total 0.4 mg/dL (0.2-1.0); Calcium 8.7 mg/dL (8.5-10.1); Potassium 4.6 mmol/L (3.5-5.1); Total Protein 7.5 g/dL (6.4-8.2)
[2018-02-10 09:00] VITALS: BP 111/73
[2018-02-10] MEDS: B-COMPLEX W/ C & FOLIC ACID(NEPHROVITE TAB) PO SCH (10:20)
[2018-02-10] MEDS: ASCORBIC ACID 500 MG TAB PO SCH ×2 (10:20→21:44)
[2018-02-10] MEDS: ASPirin-EC 81 mg tab PO SCH (10:20)
[2018-02-10] MEDS: CARVEDILOL 3.125 MG TAB PO SCH ×2 (10:21→21:44)
[2018-02-10] MEDS: PANTOPRAZOLE 40 MG TAB PO SCH ×2 (10:21→21:43)
[2018-02-10] MEDS: Novasource Renal 8 Ounces PO SCH ×2 (10:22→18:00)
[2018-02-10] MEDS: PRO-STAT 64 30ML PO SCH ×2 (10:22→18:00)
[2018-02-10 13:00] VITALS: BP 113/65
[2018-02-10 17:00] VITALS: BP 93/67
[2018-02-10] MEDS: ATORVASTATIN 20 MG TAB PO SCH (21:43)
[2018-02-10 22:00] VITALS: BP 126/75
[2018-02-11 05:00] VITALS: BP 116/70
[2018-02-11] MEDS: SUCRALFATE 1 GM/10 ML ORAL SUSP PO SCH ×2 (06:38→17:41)
[2018-02-11 06:42] LABS: Albumin 2.7 g/dL (3.4-5.0); BUN/Creatinine Ratio 11.7; Bilirubin, Total 0.7 mg/dL (0.2-1.0); Potassium 4.3 mmol/L (3.5-5.1); Total Protein 8.8 g/dL (6.4-8.2)
[2018-02-11 08:43] VITALS: BP 130/78
[2018-02-11] MEDS: Novasource Renal 8 Ounces PO SCH ×2 (09:06→17:45)
[2018-02-11] MEDS: PRO-STAT 64 30ML PO SCH ×2 (09:06→17:45)
[2018-02-11] MEDS: ASCORBIC ACID 500 MG TAB PO SCH ×2 (11:11→21:25)
[2018-02-11] MEDS: B-COMPLEX W/ C & FOLIC ACID(NEPHROVITE TAB) PO SCH (11:11)
[2018-02-11] MEDS: PANTOPRAZOLE 40 MG TAB PO SCH ×2 (11:12→21:25)
[2018-02-11] MEDS: CARVEDILOL 3.125 MG TAB PO SCH ×2 (11:12→21:26)
[2018-02-11] MEDS: ASPirin-EC 81 mg tab PO SCH (11:12)
[2018-02-11] MEDS ORDERED: SODIUM CHL 0.9% 1000 ML BAG XX ONE (12:45)
[2018-02-11 13:06] VITALS: BP 118/77
[2018-02-11 17:00] VITALS: BP 138/89
[2018-02-11] MEDS: ATORVASTATIN 20 MG TAB PO SCH (21:25)
[2018-02-11 22:20] VITALS: BP 127/72
[2018-02-12] MEDS: SUCRALFATE 1 GM/10 ML ORAL SUSP PO SCH ×2 (05:19→18:47)
[2018-02-12 05:28] VITALS: BP 144/82
[2018-02-12 06:11] LABS: Albumin 2.7 g/dL (3.4-5.0); BUN/Creatinine Ratio 12.8; Bilirubin, Total 0.4 mg/dL (0.2-1.0); Calcium 8.8 mg/dL (8.5-10.1); Total Protein 8.4 g/dL (6.4-8.2)
[2018-02-12] MEDS: PRO-STAT 64 30ML PO SCH ×2 (08:00→18:48)
[2018-02-12] MEDS: Novasource Renal 8 Ounces PO SCH ×2 (08:00→18:48)
[2018-02-12 09:00] VITALS: BP 142/81
[2018-02-12] MEDS: B-COMPLEX W/ C & FOLIC ACID(NEPHROVITE TAB) PO SCH (09:59)
[2018-02-12] MEDS: ASPirin-EC 81 mg tab PO SCH (09:59)
[2018-02-12] MEDS: CARVEDILOL 3.125 MG TAB PO SCH ×2 (09:59→22:00)
[2018-02-12] MEDS: ASCORBIC ACID 500 MG TAB PO SCH ×2 (10:00→22:06)
[2018-02-12] MEDS: PANTOPRAZOLE 40 MG TAB PO SCH ×2 (10:00→22:07)
[2018-02-12 13:00] VITALS: BP 91/64
[2018-02-12] MEDS ORDERED: HEPARIN 1,000 UNITS/ml 1ML VIAL IV ONE ×3 (15:00)
[2018-02-12 17:00] VITALS: BP 106/75
[2018-02-12] MEDS: ATORVASTATIN 20 MG TAB PO SCH (22:06)
[2018-02-13] VITALS: BP 98/76
[2018-02-13 05:27] VITALS: BP 134/90
[2018-02-13 05:40] LABS: Basophils # (auto) 0.1 uL; Basophils % (auto) 0.9 % (0.0-2.0); Eosinophils # (auto) 0.1 uL; Hematocrit 32.1 % (41.0-53.0); Hemoglobin 10.5 g/dL (13.5-17.5); Lymphocytes # (auto) 2.4 uL; Lymphocytes % (auto) 21.6 % (10.0-50.0); Mean Corpuscular Hemoglobin 27.4 pg (28.0-32.0); Mean Corpuscular Hgb Conc. 32.8 g/dL (32.0-36.0); Mean Corpuscular Volume 83.5 fL (80.0-100.0); Monocytes # (auto) 0.8 uL; Monocytes % (auto) 7.3 % (0.0-12.0); Neutrophils # (auto) 7.8 uL; Neutrophils % (auto) 69.2 % (37.0-80.0); Platelet Count (auto) 400 10^3/uL (140-450); Red Blood Cells 3.84 10^6/uL (4.5-5.90); Red Cell Distribution Width 15.6 % (11.8-14.3); White Blood Cell 11.3 10^3/uL (4.4-10.8)
[2018-02-13] MEDS: SUCRALFATE 1 GM/10 ML ORAL SUSP PO SCH (06:02)
[2018-02-13 06:03] LABS: Albumin 2.6 g/dL (3.4-5.0); BUN/Creatinine Ratio 10.4; Bilirubin, Total 0.3 mg/dL (0.2-1.0); Calcium 8.8 mg/dL (8.5-10.1); Magnesium 2.3 mg/dL (1.6-2.6); Potassium 3.6 mmol/L (3.5-5.1); Total Protein 8.8 g/dL (6.4-8.2)
[2018-02-13 09:00] VITALS: BP 132/83
[2018-02-13] MEDS ORDERED: EPOETIN ALFA 2,000 UNIT/1 ML VIAL IV ONE (09:00)
[2018-02-13] MEDS: B-COMPLEX W/ C & FOLIC ACID(NEPHROVITE TAB) PO SCH (10:17)
[2018-02-13] MEDS: ASPirin-EC 81 mg tab PO SCH (10:17)
[2018-02-13] MEDS: PANTOPRAZOLE 40 MG TAB PO SCH (10:17)
[2018-02-13] MEDS: ASCORBIC ACID 500 MG TAB PO SCH (10:17)
[2018-02-13] MEDS: Novasource Renal 8 Ounces PO SCH (10:18)
[2018-02-13] MEDS: PRO-STAT 64 30ML PO SCH (10:18)
[2018-02-13] MEDS: CARVEDILOL 3.125 MG TAB PO SCH (10:26)
[2018-02-13 10:31] LABS: Hepatitis B Surface Antigen Negative (Negative)
[2018-02-13 10:53] LABS: Hepatitis C Antibody Negative (Negative)
[2018-02-13 13:00] VITALS: BP 98/71
[2018-02-13] MEDS ORDERED: ERGOCALCIFEROL 50,000 UNIT(1.25MG) CAP PO SCH (13:30)
[2018-02-13] MEDS ORDERED: SODIUM CHL 0.9% 1000 ML BAG XX ONE (13:30)
[2018-02-13] MEDS ORDERED: EPOETIN ALFA 3,000 UNIT/1 ML VIAL IV ONE (13:45)
[2018-02-13 17:11] VITALS: BP 135/115
[2018-02-14] MEDS ORDERED: EPOETIN ALFA 2,000 UNIT/1 ML VIAL IV ONE (09:00)
[2018-02-14] MEDS ORDERED: EPOETIN ALFA 3,000 UNIT/1 ML VIAL IV ONE (09:00)
[2018-02-14] MEDS ORDERED: SODIUM CHL 0.9% 1000 ML BAG XX ONE (09:00)
== END 2018-02-13 20:40 | DRG 720 ==
LOC: EDBD 11:28 → ER 11:28 → TELE 11:29 → ICU WEST 21:01 → DOU IN ICU 01-27 00:42 → TELE-WESTW 01-29 06:40
PROVIDERS: ADMIT Internal Medicine; ATTEND Internal Medicine
PROC: 30233N1 Transfusion of Nonautologous Red Blood Cells into Peripheral Vein, Percutaneous Approach (ICD-10-PCS; 2018-01-24)
PROC: 5A1D70Z Performance of Urinary Filtration, Intermittent, Less than 6 Hours Per Day (ICD-10-PCS; 2018-01-24)
PROC: 5A1D70Z Performance of Urinary Filtration, Intermittent, Less than 6 Hours Per Day (ICD-10-PCS; 2018-01-25)
PROC: 0DJD8ZZ Inspection of Lower Intestinal Tract, Via Natural or Artificial Opening Endoscopic (ICD-10-PCS; principal; 2018-01-26 13:00)
PROC: 0DJ08ZZ Inspection of Upper Intestinal Tract, Via Natural or Artificial Opening Endoscopic (ICD-10-PCS; 2018-01-26 13:00)
PROC: 5A1D70Z Performance of Urinary Filtration, Intermittent, Less than 6 Hours Per Day (ICD-10-PCS; 2018-01-28)
PROC: 5A1D70Z Performance of Urinary Filtration, Intermittent, Less than 6 Hours Per Day (ICD-10-PCS; 2018-01-29)
PROC: 5A1D70Z Performance of Urinary Filtration, Intermittent, Less than 6 Hours Per Day (ICD-10-PCS; 2018-01-31)
PROC: 5A1D70Z Performance of Urinary Filtration, Intermittent, Less than 6 Hours Per Day (ICD-10-PCS; 2018-02-04)
PROC: 5A1D70Z Performance of Urinary Filtration, Intermittent, Less than 6 Hours Per Day (ICD-10-PCS; 2018-02-07)
PROC: 5A1D70Z Performance of Urinary Filtration, Intermittent, Less than 6 Hours Per Day (ICD-10-PCS; 2018-02-10)
PROC: 5A1D70Z Performance of Urinary Filtration, Intermittent, Less than 6 Hours Per Day (ICD-10-PCS; 2018-02-12)
DX: A41.9 Sepsis, unspecified organism (principal); I21.4 Non-ST elevation (NSTEMI) myocardial infarction; N17.0 Acute kidney failure with tubular necrosis; B49 Unspecified mycosis; G92 Toxic encephalopathy; M62.82 Rhabdomyolysis; N18.6 End stage renal disease; I12.0 Hypertensive chronic kidney disease with stage 5 chronic kidney disease or end stage renal disease; J18.9 Pneumonia, unspecified organism; D62 Acute posthemorrhagic anemia; I42.9 Cardiomyopathy, unspecified; T85.9XXA Unspecified complication of internal prosthetic device, implant and graft, initial encounter; Y84.8 Other medical procedures as the cause of abnormal reaction of the patient, or of later complication, without mention of misadventure at the time of the procedure; Y92.89 Other specified places as the place of occurrence of the external cause; D63.1 Anemia in chronic kidney disease; E11.22 Type 2 diabetes mellitus with diabetic chronic kidney disease; E83.39 Other disorders of phosphorus metabolism; F17.210 Nicotine dependence, cigarettes, uncomplicated; I25.10 Atherosclerotic heart disease of native coronary artery without angina pectoris; I25.2 Old myocardial infarction; I65.29 Occlusion and stenosis of unspecified carotid artery; I69.351 Hemiplegia and hemiparesis following cerebral infarction affecting right dominant side; K20.9 Esophagitis, unspecified; K29.70 Gastritis, unspecified, without bleeding; K29.80 Duodenitis without bleeding; K57.90 Diverticulosis of intestine, part unspecified, without perforation or abscess without bleeding; N39.0 Urinary tract infection, site not specified; Z82.49 Family history of ischemic heart disease and other diseases of the circulatory system; Z83.3 Family history of diabetes mellitus; Z87.01 Personal history of pneumonia (recurrent); Z99.2 Dependence on renal dialysis
CPT/HCPCS: 36415; 36430; 43235; 45378; 70450; 71045; 74176; 76700; 80048; 80053; 80061; 80320; 81001; 82150; 82270; 82306; 82378; 82550; 82570; 82607; 82746; 82962; 83036; 83605; 83690; 83735; 83880; 83970; 84100; 84156; 84300; 84443; 84484; 85014; 85018; 85025; 85045; 85610; 85652; 85730; 86141; 86803; 86850; 86900; 86901; 86920; 87040; 87081; 87086; 87340; 87493; 90935; 92610; 93005; 93306; 93886; 95819; 96365; 96375; 97116; 97163; 97530; 99291; C9113; J0885; J1450; J1642; J1815; J2001; J2250; J2543; J3490; Q4081